=== PATIENT | male | born 1970 | race African-American/Black ===

== ENCOUNTER 2020-09-09 15:01 | Inpatient (IN) | payer OTHER ==
[2020-09-09 16:06] VITALS: BMI 30.4
[2020-09-09] MEDS ORDERED: BISMUTH SUBSALICYLATE 524 MG/30 ML UD PO PRN (19:41)
[2020-09-09] MEDS ORDERED: MAGNESIUM CITRATE 300 ML BOTTLE PO PRN (19:41)
[2020-09-09] MEDS ORDERED: MAG HYDROX/AL HYDROX/SIMETH 30 ML UNIT-DOSE CUP PO PRN (19:41)
[2020-09-09] MEDS ORDERED: METHOCARBAMOL 500 MG TABLET PO PRN (19:41)
[2020-09-09] MEDS ORDERED: IBUPROFEN 400 MG TABLET (FP) PO PRN (19:41)
[2020-09-09] MEDS ORDERED: NICOTINE POLACRILEX 2 MG GUM BUC PRN (19:41)
[2020-09-09] MEDS ORDERED: chlordiazePOXIDE HCL 25 MG CAPSULE PO PRN (19:41)
[2020-09-09] MEDS ORDERED: MENTHOL/PHENOL 1 EACH UD MM PRN (19:41)
[2020-09-09] MEDS ORDERED: ACETAMINOPHEN 325 MG TABLET (FP) PO PRN (19:41)
[2020-09-09] MEDS: chlordiazePOXIDE HCL 25 MG CAPSULE PO SCH (22:47)
[2020-09-09] MEDS: THIAMINE HCL 100 MG TABLET (FP) PO SCH (22:48)
[2020-09-09] MEDS: hydrOXYzine PAMOATE 25 MG CAPSULE (FP) PO SCH (22:51)
[2020-09-09] MEDS: MELATONIN 5 MG TABLETS PO SCH (22:51)
[2020-09-10] MEDS: chlordiazePOXIDE HCL 25 MG CAPSULE PO SCH ×4 (06:24→23:09)
[2020-09-10] MEDS: hydrOXYzine PAMOATE 25 MG CAPSULE (FP) PO SCH ×5 (06:24→23:10)
[2020-09-10] MEDS: PRENATAL VITAMINS W/ FOLIC ACID TABLET (FP) PO SCH (09:19)
[2020-09-10] MEDS: NICOTINE 21 MG/24 HOURS TOPICAL PATCH TD SCH (09:20)
[2020-09-10] MEDS: ACETAMINOPHEN 325 MG TABLET (FP) PO PRN (10:35)
[2020-09-10 10:54] LABS: HEMOGLOBIN 12.9 GM/dL (11.7-16.9); MCH 29.1 pg (25.7-33.7); MCHC 33.1 g/dl (32.0-35.9); MEAN CELL VOLUME 88.1 fl (80-96); MEAN PLT VOLUME 9.6 fl (7.5-11.1); PLATELET COUNT 176 K/MM3 (134-434); RBC 4.43 M/mm3 (4.00-5.60); RDW 14.5 % (11.9-15.9); WHITE BLOOD COUNT 4.5 K/mm3 (4.0-10.0)
[2020-09-10 10:58] LABS: POTASSIUM 4.1 mmol/L (3.5-5.1)
[2020-09-10 11:04] LABS: BLOOD UREA NITROGEN 10.5 mg/dL (7-18); CALCIUM 8.4 mg/dL (8.5-10.1)
[2020-09-10 11:05] LABS: ALBUMIN 2.9 g/dl (3.4-5.0)
[2020-09-10 11:08] LABS: CREATININE 1.1 mg/dL (0.55-1.3)
[2020-09-10 11:10] LABS: TOT PROT 5.8 g/dl (6.4-8.2)
[2020-09-10 11:11] LABS: BILIRUBIN,TOTAL 1.8 mg/dL (0.2-1)
[2020-09-10 13:14] LABS: HIV INTERPRETATION NEGATIVE (NEGATIVE)
[2020-09-10] MEDS: MELATONIN 5 MG TABLETS PO SCH (23:10)
[2020-09-10] MEDS: THIAMINE HCL 100 MG TABLET (FP) PO SCH (23:10)
[2020-09-11] MEDS: MAGNESIUM HYDROX 2400MG/30ML ORAL SUSPENSION 30 ML CUP PO PRN (01:52)
[2020-09-11] MEDS: hydrOXYzine PAMOATE 25 MG CAPSULE (FP) PO SCH ×3 (06:49→13:28)
[2020-09-11] MEDS: chlordiazePOXIDE HCL 25 MG CAPSULE PO SCH ×4 (06:49→22:52)
[2020-09-11] MEDS: PRENATAL VITAMINS W/ FOLIC ACID TABLET (FP) PO SCH (10:26)
[2020-09-11] MEDS: NICOTINE 21 MG/24 HOURS TOPICAL PATCH TD SCH (10:27)
[2020-09-11] MEDS: ONDANSETRON *ODT* 4 MG TABLET SL PRN (10:28)
[2020-09-11] MEDS ORDERED: hydrOXYzine PAMOATE 25 MG CAPSULE (FP) PO PRN (14:16)
[2020-09-11] MEDS: MELATONIN 5 MG TABLETS PO SCH (22:51)
[2020-09-11] MEDS: THIAMINE HCL 100 MG TABLET (FP) PO SCH (22:52)
[2020-09-11] MEDS: PANTOPRAZOLE 20 MG TABLET PO SCH (22:52)
[2020-09-12] MEDS ORDERED: chlordiazePOXIDE HCL 10 MG CAPSULE PO PRN
[2020-09-12] MEDS: chlordiazePOXIDE HCL 10 MG CAPSULE PO SCH ×4 (06:26→23:41)
[2020-09-12] MEDS: PRENATAL VITAMINS W/ FOLIC ACID TABLET (FP) PO SCH (10:32)
[2020-09-12] MEDS: PANTOPRAZOLE 20 MG TABLET PO SCH ×2 (10:32→23:41)
[2020-09-12] MEDS: NICOTINE 21 MG/24 HOURS TOPICAL PATCH TD SCH (10:32)
[2020-09-12] MEDS: MAGNESIUM HYDROX 2400MG/30ML ORAL SUSPENSION 30 ML CUP PO PRN (10:35)
[2020-09-12] MEDS: ACETAMINOPHEN 325 MG TABLET (FP) PO PRN (10:35)
[2020-09-12] MEDS: ONDANSETRON *ODT* 4 MG TABLET SL PRN (10:35)
[2020-09-12] MEDS: THIAMINE HCL 100 MG TABLET (FP) PO SCH (23:40)
[2020-09-12] MEDS: MELATONIN 5 MG TABLETS PO SCH (23:42)
[2020-09-13] MEDS: chlordiazePOXIDE HCL 10 MG CAPSULE PO SCH ×2 (06:09→18:15)
[2020-09-13] MEDS: PANTOPRAZOLE 20 MG TABLET PO SCH ×2 (09:16→22:00)
[2020-09-13] MEDS: PRENATAL VITAMINS W/ FOLIC ACID TABLET (FP) PO SCH (09:16)
[2020-09-13] MEDS: NICOTINE 21 MG/24 HOURS TOPICAL PATCH TD SCH (09:16)
[2020-09-13] MEDS: THIAMINE HCL 100 MG TABLET (FP) PO SCH (22:00)
[2020-09-13] MEDS: MELATONIN 5 MG TABLETS PO SCH (22:00)
[2020-09-14] MEDS ORDERED: chlordiazePOXIDE HCL 10 MG CAPSULE PO ONE (05:00)
[2020-09-14 09:02] VITALS: BP 127/83; PULSE 90; TEMP 97.1
[2020-09-14] MEDS: PANTOPRAZOLE 20 MG TABLET PO SCH (10:40)
[2020-09-14] MEDS: PRENATAL VITAMINS W/ FOLIC ACID TABLET (FP) PO SCH (10:40)
[2020-09-14] MEDS: NICOTINE 21 MG/24 HOURS TOPICAL PATCH TD SCH (10:41)
== END 2020-09-14 11:10 | disposition other institution (70) | DRG 774 ==
LOC: YASAS 15:01 → Y3N 21:20
PROVIDERS: ADMIT Allergy & Immunology; ATTEND Allergy & Immunology
PROC: HZ2ZZZZ Detoxification Services for Substance Abuse Treatment (ICD-10-PCS; principal; 2020-09-09)
DX: F10.230 Alcohol dependence with withdrawal, uncomplicated (principal); F14.20 Cocaine dependence, uncomplicated; F17.210 Nicotine dependence, cigarettes, uncomplicated; F41.9 Anxiety disorder, unspecified; F32.9 Major depressive disorder, single episode, unspecified; K21.9 Gastro-esophageal reflux disease without esophagitis
CPT/HCPCS: 36415; 80053; 85027; 86780; 87389; 93005; 93010; C9803; Q0162; U0003

== ENCOUNTER 2020-09-14 11:20 | Inpatient (IN) | payer OTHER ==
[2020-09-14] MEDS ORDERED: P-EPHED 60MG/TRIPROLIDI 2.5MG TABLET PO PRN (12:01)
[2020-09-14] MEDS ORDERED: MAGNESIUM HYDROX 2400MG/30ML ORAL SUSPENSION 30 ML CUP PO PRN (12:01)
[2020-09-14] MEDS ORDERED: guaiFENesin 200 MG/10 ML 10 ML UNIT-DOSE CUPS PO PRN (12:01)
[2020-09-14] MEDS ORDERED: LOPERAMIDE HCL 2 MG CAPSULE PO PRN (12:01)
[2020-09-14] MEDS ORDERED: hydrOXYzine PAMOATE 25 MG CAPSULE (FP) PO PRN (12:01)
[2020-09-14] MEDS ORDERED: MENTHOL/PHENOL 1 EACH UD MM PRN (12:01)
[2020-09-14] MEDS ORDERED: MAGNESIUM CITRATE 300 ML BOTTLE PO PRN (12:01)
[2020-09-14] MEDS ORDERED: ACETAMINOPHEN 325 MG TABLET (FP) PO PRN (12:01)
[2020-09-14] MEDS ORDERED: IBUPROFEN 400 MG TABLET (FP) PO PRN (12:01)
[2020-09-14] MEDS ORDERED: MAG HYDROX/AL HYDROX/SIMETH 30 ML UNIT-DOSE CUP PO PRN (12:01)
[2020-09-14] MEDS: THIAMINE HCL 100 MG TABLET (FP) PO SCH (21:29)
[2020-09-14] MEDS: MELATONIN 5 MG TABLETS PO SCH (21:30)
[2020-09-15] MEDS: PANTOPRAZOLE 40 MG TABLET PO SCH (10:06)
[2020-09-15] MEDS: PRENATAL VITAMINS W/ FOLIC ACID TABLET (FP) PO SCH (10:06)
[2020-09-15] MEDS: THIAMINE HCL 100 MG TABLET (FP) PO SCH (21:07)
[2020-09-15] MEDS: MELATONIN 5 MG TABLETS PO SCH (21:07)
[2020-09-16] MEDS: PRENATAL VITAMINS W/ FOLIC ACID TABLET (FP) PO SCH (10:05)
[2020-09-16] MEDS: PANTOPRAZOLE 40 MG TABLET PO SCH (10:05)
[2020-09-16] MEDS: THIAMINE HCL 100 MG TABLET (FP) PO SCH (21:28)
[2020-09-16] MEDS: MELATONIN 5 MG TABLETS PO SCH (21:28)
[2020-09-17] MEDS: PANTOPRAZOLE 40 MG TABLET PO SCH (09:46)
[2020-09-17] MEDS: PRENATAL VITAMINS W/ FOLIC ACID TABLET (FP) PO SCH (09:46)
[2020-09-17] MEDS: THIAMINE HCL 100 MG TABLET (FP) PO SCH (21:06)
[2020-09-17] MEDS: MELATONIN 5 MG TABLETS PO SCH (21:07)
[2020-09-18] MEDS: PANTOPRAZOLE 40 MG TABLET PO SCH (09:33)
[2020-09-18] MEDS: PRENATAL VITAMINS W/ FOLIC ACID TABLET (FP) PO SCH (09:33)
[2020-09-18] MEDS: MELATONIN 5 MG TABLETS PO SCH (21:36)
[2020-09-18] MEDS: THIAMINE HCL 100 MG TABLET (FP) PO SCH (21:36)
[2020-09-19] MEDS: PRENATAL VITAMINS W/ FOLIC ACID TABLET (FP) PO SCH (09:55)
[2020-09-19] MEDS: PANTOPRAZOLE 40 MG TABLET PO SCH (09:55)
[2020-09-19] MEDS: THIAMINE HCL 100 MG TABLET (FP) PO SCH (21:09)
[2020-09-19] MEDS: MELATONIN 5 MG TABLETS PO SCH (21:09)
[2020-09-20] MEDS: PANTOPRAZOLE 40 MG TABLET PO SCH (09:55)
[2020-09-20] MEDS: PRENATAL VITAMINS W/ FOLIC ACID TABLET (FP) PO SCH (09:55)
[2020-09-20] MEDS: MELATONIN 5 MG TABLETS PO SCH (21:05)
[2020-09-20] MEDS: THIAMINE HCL 100 MG TABLET (FP) PO SCH (21:05)
[2020-09-21 06:56] VITALS: BP 133/98; PULSE 82; TEMP 97.7
[2020-09-21] MEDS: PRENATAL VITAMINS W/ FOLIC ACID TABLET (FP) PO SCH (09:06)
[2020-09-21] MEDS: PANTOPRAZOLE 40 MG TABLET PO SCH (09:08)
== END 2020-09-21 09:25 | disposition home or self-care (01) | DRG 772 ==
LOC: YASAS 11:20 → Y3W 11:21
PROVIDERS: ADMIT Allergy & Immunology; ATTEND Allergy & Immunology
PROC: HZ42ZZZ Group Counseling for Substance Abuse Treatment, Cognitive-Behavioral (ICD-10-PCS; principal; 2020-09-14)
DX: F10.20 Alcohol dependence, uncomplicated (principal); F14.20 Cocaine dependence, uncomplicated; F17.210 Nicotine dependence, cigarettes, uncomplicated; F41.8 Other specified anxiety disorders; F32.9 Major depressive disorder, single episode, unspecified; K21.9 Gastro-esophageal reflux disease without esophagitis; Z59.0 Homelessness
CPT/HCPCS: C9803; U0003